=== PATIENT | male | born 1975 | race Caucasian/White ===

== ENCOUNTER 2016-10-14 08:58 | Emergency (ER) | payer OTHER ==
[~2016-10-14] VITALS: Ht 175.3 cm; Wt 83.9 kg
[2016-10-14] MEDS ORDERED: NAPROXEN 250 MG TAB PO ONE (10:30)
[2016-10-14] MEDS ORDERED: MOBI7.5T10 PO (10:42)
[2016-10-14 10:50] VITALS: BP 123/69
--- NOTE | 2016-10-15 07:05 | REP ---
RIGHT LOWER EXTREMITY ULTRASOUND: TECHNIQUE: Multiple ultrasonographic images of the deep venous structures of the right thigh were obtained from the common femoral vein to the popliteal vein along with Doppler interrogation and color flow Doppler images. FINDINGS: There is no abnormal echogenic material seen within any of the visualized deep venous structures that would suggest acute thrombosis. Coaptation is unremarkable throughout. Doppler interrogation shows an expected response to respiratory variability and augmentation. The color flow images show what appears to be a normal vascular pattern throughout. IMPRESSION: There is no ultrasonographic evidence of deep venous thrombosis involving any of the visualized deep venous structures of the right thigh, as described above. Signed by Darnell Vneces DO 10/15/2016 09:54 A
== END 2016-10-14 10:54 | disposition home or self-care (01) ==
LOC: M ED 10:11
DX: S86.911A Strain of unspecified muscle(s) and tendon(s) at lower leg level, right leg, initial encounter (principal); X50.0XXA Overexertion from strenuous movement or load, initial encounter; Y92.89 Other specified places as the place of occurrence of the external cause; Y93.61 Activity, american tackle football; Y99.8 Other external cause status; Z79.899 Other long term (current) drug therapy; Z88.0 Allergy status to penicillin; F17.210 Nicotine dependence, cigarettes, uncomplicated